=== PATIENT | male | born 1985 | race Caucasian/White ===

== ENCOUNTER 2019-01-23 22:29 | Emergency (ER) | payer SELFPAY ==
[2019-01-23 22:30] VITALS: BP 134/83; PULSE 106; RESP 16; TEMP 36.7; BMI 27.2
--- NOTE | 2019-01-23 22:51 | ED.VISSUMM ---
- ER Visit Summary Date of Service: 01/23/19 Chief Complaint: Earbud cover in right ear History of Present Illness: The patient is a 33 M no seen past medical history. Patient removed his ear buds in the cover stating his right ear canal. Denies any other complaints. No bleeding. Physical Examination: Vital signs stable and afebrile. Well-appearing young male. HEENT exam currently is normal. He had a earbud cover in his right ear canal which nurses have already removed. There is no signs of trauma, bleeding or injury to the canal or the right tympanic membrane which is intact. Lungs clear to auscultation bilaterally. Heart regular rhythm no murmur. Otherwise exam unremarkable. Test Results: None Emergency Department Course and Treatment: Earbud covered removed by nursing. Treatment Plan: Follow-up as needed. Disposition: Discharge Impression: Right earbud cover stuck in right ear. (Foreign body) were removed by RN This note was generated with [employer] dictation software. It may contain incorrect words, spelling, and punctuation that were not noted in review of the chart prior to signing ED Disposition - Plan for ED Patient: Referrals: Care Physician,No Primary [Primary Care Provider] -
--- NOTE | 2019-01-23 22:53 | ED.DEP ---
ED Disposition - Plan for ED Patient: Referrals: Beni Gonzalez MD [STAFF PHYSICIAN] - As Needed
== END 2019-01-23 22:57 | disposition home or self-care (01) ==
LOC: ED 22:46
PROVIDERS: Emergency Provider Emergency Medicine
DX: T16.1XXA Foreign body in right ear, initial encounter (principal); X58.XXXA Exposure to other specified factors, initial encounter; Y93.9 Activity, unspecified; Y92.9 Unspecified place or not applicable; Z72.0 Tobacco use
CPT/HCPCS: 99282

== ENCOUNTER 2019-03-26 23:43 | Emergency (ER) | payer SELFPAY ==
[2019-03-26 23:45] VITALS: BP 153/92; PULSE 130; RESP 16; TEMP 37.2; O2SAT 97; BMI 28.6
[2019-03-26 23:49] VITALS: RESP 16
--- NOTE | 2019-03-26 23:53 | ED.VIS.GEN ---
History of Present Illness Chief Complaint: Substance Abuse Narrative: Patient stated that he is unsure what happened. He denies doing it using any narcotics. Was found by friend unconscious. EMS gave him Narcan and he woke up. He denies complaints. Current severity is resolved. Denies chest pain or shortness of breath. He stated he has dabbled and narcotics in the past but never overdosed Past Medical History - Allergies and Home Meds Allergies/Adverse Reactions: Allergies No Known Allergies Allergy (Verified 03/26/19 23:48) Primary Care Physician: Care Physician,No Primary [Primary Care Provider] - Prior records reviewed: Yes Past Medical History: - - Denies Surgical History: noncontributory Smoking Status: Current every day smoker Alcohol: None Drugs: - - Patient denies Review of Systems General: Denies: Chills, Fever, Sweats Eyes: Denies: Visual changes - bilaterally, Diplopia ENT: Denies: Rhinorrhea, Sore throat Cardiovascular: Denies: Chest pain, Palpitations Respiratory: Denies: Dyspnea, Cough, Dyspnea on exertion Gastrointestinal: Denies: Abdominal pain, Nausea, Vomiting, Diarrhea, Melena, Hematochezia Genitourinary: Denies: Dysuria, Hematuria, Frequency Musculoskeletal: Denies: Back pain, Extremity Pain Skin: Denies: Rash, Wounds Neurological: Denies: Headache, Weakness, Numbness Physical Exam Vital Signs/Narrative: Vital Signs Temp Pulse Resp BP Pulse Ox 03/26/19 23:49 16 03/26/19 23:45 98.9 F 130 H 16 153/92 H 97 General: Well nourished, Well developed, No Acute Distress Head: Normocephalic, Atraumatic Eyes: Perrl, EOMI ENT: Moist mucous membranes, No rhinorrhea Neck: Supple, Nontender Cardiovascular: Regular rhythm, No murmurs, Tachycardia. Negative for: Regular rate Respiratory: No distress, CTA bilaterally, Chest nontender Abdomen: Soft, Nontender, Nondistended, Normal bowel sounds Back: Nontender, Normal Inspection Extremities: Nontender, No edema Skin: Normal color, No rash Neurological: Alert, Oriented x3, Cranial nerves II-XII grossly intact, Normal Strength, Normal Sensation Psychological: Normal affect, Normal Mood Diagnostic/Tx/Re-eval - Medical Decision Making Patient resolved unconsciousness with Narcan I suspect to use opiates. Monitor the emergency department for over an hour and will be discharged. Did not use opiates in the future ED Disposition - Plan for ED Patient: Disposition: Home or Assisted Living Diagnosis: Opiate or related narcotic overdose Instructions: Opiate Abuse Referrals: Care Physician,No Primary [Primary Care Provider] - [facility] [STAFF PHYSICIAN] -
[2019-03-27 00:44] VITALS: BP 152/90; PULSE 122; RESP 16; O2SAT 97
== END 2019-03-27 00:45 | disposition home or self-care (01) ==
LOC: ED 03-27 00:10
PROVIDERS: Emergency Provider Emergency Medicine
DX: T40.601A Poisoning by unspecified narcotics, accidental (unintentional), initial encounter (principal); Y92.9 Unspecified place or not applicable; F17.200 Nicotine dependence, unspecified, uncomplicated
CPT/HCPCS: 99283

== ENCOUNTER 2019-07-13 20:01 | Emergency (ER) | payer SELFPAY ==
[2019-07-13 20:02] VITALS: BP 152/100; PULSE 133; RESP 18; O2SAT 94
[2019-07-13 20:03] VITALS: BP 152/100; PULSE 125; RESP 18; TEMP 34.8; O2SAT 97; BMI 33.9
--- NOTE | 2019-07-13 20:32 | ED.VIS.GEN ---
History of Present Illness Chief Complaint: Overdose Informant: Patient Onset: Today Context: Sudden Onset Narrative: Patient is a 33-year-old male with no known past medical history presenting for an overdose. Patient was found unresponsive in his garage and cyanotic per report. Patient received 3 doses of intranasal Narcan and then 1 dose of IV Narcan. Patient's one time he has spontaneous return of ventilations. Patient admits to smoking marijuana twice daily and taking pain pill. He does not know what the pain pill was but thinks it is very strong. He states it was an acquaintance that gave to him. He denies any other illicit drug use. Patient currently denies any complaints. Past Medical History - Allergies and Home Meds Allergies/Adverse Reactions: Allergies No Known Allergies Allergy (Verified 03/26/19 23:48) Primary Care Physician: Bolivar Robins MD [STAFF PHYSICIAN] - Past Medical History: None Surgical History: noncontributory Smoking Status: Current every day smoker Review of Systems General: Denies: Chills, Fever, Sweats Eyes: Denies: Visual changes - bilaterally, Diplopia ENT: Denies: Rhinorrhea, Sore throat Cardiovascular: Denies: Chest pain, Palpitations Respiratory: Denies: Dyspnea, Cough, Dyspnea on exertion Gastrointestinal: Denies: Abdominal pain, Nausea Genitourinary: Denies: Dysuria, Hematuria, Frequency Musculoskeletal: Denies: Back pain, Extremity Pain Skin: Denies: Rash, Wounds Neurological: Denies: Headache, Weakness, Numbness Physical Exam Vital Signs/Narrative: Vital Signs Temp Pulse Resp BP Pulse Ox 07/13/19 20:03 94.6 F L 125 H 18 152/100 H 97 07/13/19 20:02 133 H 18 152/100 H 94 Inital Vital Signs reviewed: Yes General: Well nourished, Well developed, No Acute Distress Head: Normocephalic, Atraumatic Eyes: Perrl, EOMI ENT: Moist mucous membranes, No rhinorrhea Neck: Supple, Nontender Cardiovascular: Regular rhythm, Tachycardia Respiratory: No distress, CTA bilaterally, Chest nontender Abdomen: Soft, Nontender, Nondistended, Normal bowel sounds Back: Nontender, Normal Inspection Extremities: Nontender, No edema Skin: Normal color, No rash Neurological: Alert, Oriented x3, Cranial nerves II-XII grossly intact, Normal Strength, Normal Sensation Psychological: Normal affect, Normal Mood Diagnostic/Tx/Re-eval - Medical Decision Making She is monitored for 2 hours after receiving Narcan. He has no further respiratory compromise. Patient states he took a pill that was green and he had a 30 on it. Internet search shows that oxycodone 30 mg extended release fits that description. It is possible that this is what causes are ruled out especially if he chewed it. Patient is counseled to never take any medications for strangers and only take medications prescribed. He is counseled to avoid any illicit drug use. This is a second overdose that is been seen at [facility] emergency room for. Patient is breathing easily and is slightly tachycardic but I believe this is a subsequent to receiving Narcan. Patient is counseled on signs and symptoms requiring return to the emergency room. Patient verbalizes agreement and understand this plan. Patient discharged home in stable and improved condition. At time of discharge patient's mother does request to be evaluated by case management or crisis. Patient is given resources for addiction and treatment by case management. ED Disposition - Plan for ED Patient: Disposition: Home or Assisted Living Diagnosis: Opioid overdose Instructions: OVERDOSE, Opiate Referrals: Bolivar Robins MD [STAFF PHYSICIAN] - Additional Instructions: You stop breathing came in and required Narcan to save your life. Does not take any medications not prescribed to you. Return to emergency room if any worsening symptoms or concerns. Please establish with a primary care doctor. Do not use illicit drugs.
--- NOTE | 2019-07-13 22:06 | CM.ED ---
Social Work Consult: Overdose/Substance Abuse Informant: Dr. Gaines Patient already discharged from unit. Per Dr. Gaines patient mother is asking for information about substance abuse support. Patient stating to also be interested in help. This social media assistant providing patient with substance abuse support options and encouraging patient to follow up with [facility] in the community. Patient stating, yeah that is probably a good idea. Active listening and support provided. Irma Brito MSW, RAUL
[2019-07-13 22:10] VITALS: BP 138/99; PULSE 98; RESP 18; O2SAT 97
== END 2019-07-13 22:16 | disposition home or self-care (01) ==
PROVIDERS: Emergency Provider Emergency Medicine
DX: T40.2X1A Poisoning by other opioids, accidental (unintentional), initial encounter (principal); Y92.9 Unspecified place or not applicable; F12.90 Cannabis use, unspecified, uncomplicated; F17.200 Nicotine dependence, unspecified, uncomplicated
CPT/HCPCS: 99284; J7030; A4216